=== PATIENT | female | born 1955 | race Caucasian/White ===

== ENCOUNTER 2017-09-19 12:08 | Outpatient (CLI) | payer BC | END 2017-09-19 12:09 | disposition home or self-care (01) | LOC: BICMAMMO 12:08 | PROVIDERS: ATTEND Physician Assistant | DX: Z12.31 Encounter for screening mammogram for malignant neoplasm of breast (principal); Z80.3 Family history of malignant neoplasm of breast | CPT/HCPCS: 77063; 77067 ==

== ENCOUNTER 2018-08-30 09:32 | Outpatient (CLI) | payer BC ==
--- NOTE | 2018-08-30 11:06 | RAD ---
CHEST PA AND LATERAL: HISTORY: Cough for two months. COMPARISON: 04/23/2011 FINDINGS: Heart size is normal. Lungs are clear of acute process. No confluent pneumonia, overt edema, or ple ural effusion. IMPRESSION: No acute intrathoracic disease. POS: C
== END 2018-08-30 09:33 | disposition home or self-care (01) ==
LOC: BICRAD 09:32
PROVIDERS: ATTEND Family Medicine
DX: R07.2 Precordial pain (principal)
CPT/HCPCS: 36415; 71046; 80053; 80061

== ENCOUNTER 2018-10-11 15:50 | Outpatient (CLI) | payer BC ==
--- NOTE | 2018-10-11 16:43 | MMO ---
Bilateral MAMMO Bilat Screen [facility]. CLINICAL HISTORY: Patient is 63 years old and is seen for screening. The patient has the following family history of breast cancer: mother. The patient has no personal history of cancer. VIEWS: The views performed were: bilateral craniocaudal with tomosynthesis and bilateral mediolateral oblique with tomosynthesis. FILMS COMPARED: The present examination has been compared to prior imaging studies performed at [facility] on 09/03/2014, 09/08/2015, 09/09/2016 and 09/19/2017. MAMMOGRAM FINDINGS: There are scattered fibroglandular densities. There are no suspicious masses, suspicious calcifications, or new areas of architectural distortion. IMPRESSION: THERE IS NO MAMMOGRAPHIC EVIDENCE OF MALIGNANCY. A ROUTINE FOLLOW-UP MAMMOGRAM IN 1 YEAR IS RECOMMENDED. THE RESULTS OF THIS EXAM WERE SENT TO THE PATIENT. ACR BI-RADS Category 1 - Negative MAMMOGRAPHY NOTE: 1. A negative mammogram report should not delay a biopsy if a dominant of clinically suspicious mass is present. 2. Approximately 10% to 15% of breast cancers are not detected by mammography. 3. Adenosis and dense breasts may obscure an underlying neoplasm. Reported by: SUDHAKAR LUDWIG MD Electonically Signed: [id number]
== END 2018-10-11 15:51 | disposition home or self-care (01) ==
LOC: BICMAMMO 15:50
PROVIDERS: ATTEND Family Medicine
DX: Z12.31 Encounter for screening mammogram for malignant neoplasm of breast (principal); Z80.3 Family history of malignant neoplasm of breast
CPT/HCPCS: 77063; 77067

== ENCOUNTER 2019-10-19 12:13 | Outpatient (CLI) | payer BC ==
--- NOTE | 2019-10-19 13:00 | MMO ---
Bilateral MAMMO Bilat Screen [facility]. CLINICAL HISTORY: Patient is 64 years old and is seen for screening. The patient has the following family history of breast cancer: mother. The patient has no personal history of cancer. VIEWS: The views performed were: bilateral craniocaudal with tomosynthesis and bilateral mediolateral oblique with tomosynthesis. FILMS COMPARED: The present examination has been compared to prior imaging studies performed at [facility] on 09/08/2015, 09/09/2016, 09/19/2017 and 10/11/2018. This study has been interpreted with the assistance of computer-aided detection. MAMMOGRAM FINDINGS: There are scattered fibroglandular densities. There are no suspicious masses, suspicious calcifications, or new areas of architectural distortion. IMPRESSION: THERE IS NO MAMMOGRAPHIC EVIDENCE OF MALIGNANCY. A ROUTINE FOLLOW-UP MAMMOGRAM IN 1 YEAR IS RECOMMENDED. THE RESULTS OF THIS EXAM WERE SENT TO THE PATIENT. ACR BI-RADS Category 1 - Negative MAMMOGRAPHY NOTE: 1. A negative mammogram report should not delay a biopsy if a dominant of clinically suspicious mass is present. 2. Approximately 10% to 15% of breast cancers are not detected by mammography. 3. Adenosis and dense breasts may obscure an underlying neoplasm. Reported by: SUKUMAR POWERS MD Electonically Signed: [id number]
== END 2019-10-19 12:14 | disposition home or self-care (01) ==
LOC: BICMAMMO 12:13
PROVIDERS: ATTEND Family Medicine
DX: Z12.31 Encounter for screening mammogram for malignant neoplasm of breast (principal); Z80.3 Family history of malignant neoplasm of breast
CPT/HCPCS: 77063; 77067

== ENCOUNTER 2019-11-14 07:39 | Outpatient (CLI) | payer BC, OTHER ==
[2019-11-14 14:04] LABS: Hemoglobin 13.3 g/dL (12.0-16.0); Mean Corpuscular HGB CONC 34.3 g/dL (32.0-36.0); Mean Corpuscular Hemoglobin 31.1 pg (27.0-31.0); Mean Corpuscular Volume 90.5 fL (78.0-98.0); Mean Platelet Volume 7.2 fL (7.4-10.4); Platelet Count 271 thou/uL (130-400); RBC Distribution Width 11.8 % (11.5-14.5); Red Blood Cell (RBC) Count 4.27 mill/uL (4.20-5.40); White Blood Cell (WBC) Count 6.9 thou/uL (4.8-10.8)
[2019-11-15 13:16] LABS: SARS-CoV-2 MS2 Positive; SARS-CoV-2 N Gene Negative; SARS-CoV-2 S Gene Negative; SARS-CoV-2 by NAA Not Detected (NotDetected); SARS-CoV-2 orf1ab Negative
== END 2019-11-14 07:40 | disposition home or self-care (01) ==
LOC: LABBT 07:39
PROVIDERS: ATTEND Obstetrics & Gynecology
DX: Z01.812 Encounter for preprocedural laboratory examination (principal); Z20.828 Contact with and (suspected) exposure to other viral communicable diseases; N81.11 Cystocele, midline; N81.6 Rectocele; N39.3 Stress incontinence (female) (male)
CPT/HCPCS: 85027; 86850; 86900; 86901; 87635; U0003

== ENCOUNTER 2019-11-19 10:05 | Day surgery (SDC) | payer BC ==
[2019-11-15 12:14] VITALS: BMI 30.3
--- NOTE | 2019-11-18 18:57 | HP ---
HISTORY OF PRESENT ILLNESS: Ms. Medel is a 64-year-old white female, previous hysterectomy, who has been having increasing symptoms of pelvic prolapse and an increasing bulge symptoms in the vagina. She denies any stress incontinence issues. She has done Kegel exercises with minimal improvement of her symptoms. She is desiring surgical repair of the prolapse. PAST MEDICAL HISTORY: Hyperlipidemia and reflux. PREVIOUS SURGERIES: As noted, the hysterectomy in the past. MEDICATIONS: 1. Esomeprazole magnesium 40 mg tablet daily. 2. Estrace 0.01% vaginal cream twice a week. 3. Simvastatin. ALLERGIES: NO KNOWN DRUG ALLERGIES. FAMILY HISTORY: Noncontributory. PHYSICAL EXAMINATION: VITAL SIGNS: 5 feet 2 inches, weight 165, BMI 30.2, blood pressure 130/82, pulse 75 and regular, respiratory rate 18, and O2 saturation 95% on room air. HEENT: Within normal limits. CHEST: Clear to auscultation. HEART: Regular rate and rhythm, S1 and S2 heart sounds. No murmurs, rubs, or gallops. ABDOMEN: Soft, nontender, nondistended with no palpable masses. PELVIC: Vulva and vagina had no lesions. Cervix surgically absent. Vagina had no lesions. She did have a grade 3 cystocele, grade 2 rectocele on exam. ASSESSMENT: This is a 64-year-old white female with prior hysterectomy with symptomatic grade 3 cystocele and grade 2 rectocele. PLAN: Plan is to proceed with anterior and posterior repair procedure on 11/19/2019. Risks and benefits of procedure have been discussed in detail. Job ID: [id number]
[2019-11-19] MEDS ORDERED: EPHEDRINE 25 MG/5 ML SYRINGE ONE (10:51)
[2019-11-19] MEDS ORDERED: Lidocaine 1% PF 5 ML VIAL ONE (10:51)
[2019-11-19] MEDS ORDERED: Dexamethasone 20 MG/5 ML VIAL ONE (10:51)
[2019-11-19] MEDS ORDERED: Metoclopramide HCl 10 MG/2 ML VIAL ONE (10:51)
[2019-11-19] MEDS ORDERED: Ondansetron PF 4 MG/2 ML Vial ONE (10:51)
[2019-11-19] MEDS ORDERED: Rocuronium Bromide 10 MG/ML (10ML VIAL) ONE (10:51)
[2019-11-19] MEDS ORDERED: PROPOFOL 200 MG/20 ML VIAL ONE (10:51)
[2019-11-19] MEDS ORDERED: PHENYLEPHRINE-NS 100 MCG/ML 10 ML SYRINGE ONE (10:51)
[2019-11-19] MEDS ORDERED: Fentanyl 100 MCG/2 ML VIAL ONE (12:12)
[2019-11-19] MEDS ORDERED: SUGAMMADEX SODIUM 200 MG/2 ML VIAL ONE (12:13)
[2019-11-19] MEDS ORDERED: Famotidine/PF 20 mg/2ml Vial ONE (12:13)
[2019-11-19] MEDS ORDERED: Lidocaine 1% w/Epinephrine 1:100K 20 ML VIAL ONE (12:35)
[2019-11-19] MEDS ORDERED: Ketorolac Tromethamine 30 MG/ML VIAL IVP PRN (14:11)
[2019-11-19] MEDS ORDERED: Promethazine HCl 25 MG/ML VIAL IM PRN ×2 (14:11→14:14)
[2019-11-19] MEDS ORDERED: Ondansetron HCl/PF 4 MG/2 ML Vial IVP PRN (14:11)
[2019-11-19] MEDS ORDERED: Meperidine HCl/PF 25 MG/ML VIAL SLOW IVP PRN (14:11)
[2019-11-19] MEDS ORDERED: Promethazine HCl 25 MG/ML VIAL SLOW IVP PRN (14:11)
[2019-11-19] MEDS ORDERED: Simethicone Chewable 80 MG TAB PO PRN (14:14)
[2019-11-19] MEDS ORDERED: Morphine 4 MG/ML VIAL SLOW IVP PRN (14:14)
[2019-11-19] MEDS ORDERED: Zolpidem Tartrate 5 MG TAB PO PRN (14:14)
[2019-11-19] MEDS ORDERED: Acetaminophen 325 MG TAB PO PRN (14:14)
[2019-11-19] MEDS ORDERED: traMADol HCl 50 MG TAB PO PRN (14:14)
[2019-11-19] MEDS ORDERED: diphenhydrAMINE 25 MG CAP PO PRN (14:14)
[2019-11-19] MEDS ORDERED: Ondansetron PF 4 MG/2 ML Vial IVP PRN (14:14)
--- NOTE | 2019-11-19 18:11 | OP ---
DATE OF PROCEDURE: 11/19/2019 PREOPERATIVE DIAGNOSES: A 64-year-old white female, prior LAVH, BSO with A and P, 10 years ago with recurrence of grade 3 cystocele and grade 2 rectocele. POSTOPERATIVE DIAGNOSES: A 64-year-old white female, prior LAVH, BSO with A and P, 10 years ago with recurrence of grade 3 cystocele and grade 2 rectocele. PROCEDURE PERFORMED: Anterior and posterior repair. SURGEON: Anel Horton MD ANESTHESIA: General. ESTIMATED BLOOD LOSS: 25 mL. COMPLICATIONS: None. COUNTS: Correct x2. FINDINGS: 1. Clear urine present in Caruso catheter postprocedure. 2. Posterior repair procedure, rectal exam showed no evidence of any inadvertent suture placement through the rectal mucosa. DISPOSITION: Recovery room, stable. DESCRIPTION OF PROCEDURE: The patient previously received informed consent in regard to surgery. She was taken back to the operating room, where she received a general endotracheal anesthetic agent without complications. She was placed in the dorsal lithotomy position with the use of Logan stirrups. She was prepped and draped in usual fashion and Caruso catheter was placed. At this time, exam under anesthesia was carried out with the previously mentioned findings. A weighted speculum was placed in the vagina. The apex of the vaginal cuff line was grasped with two Allis clamps at 3 o'clock and 9 o'clock. The anterior vaginal mucosa was infiltrated with 1% lidocaine with epinephrine for hydrodissection. Then, a vertical midline incision was made in the anterior vaginal mucosa, carried up to about 1.5 cm from the urethral meatus. The edges of the vaginal mucosa were grasped with intervening Allis clamps while I dissected the cystocele both bluntly and sharply away from the vaginal mucosal jimenez. Once the cystocele had been reduced in its entirety, the endopelvic fascia was then replicated in the midline using [id number] sutures of 2-0 Vicryl in an interrupted fashion. Once the endopelvic fascia plication was completed, the excess vaginal mucosa was trimmed and the anterior vaginal mucosa was closed with interrupted [id number] sutures of 2-0 Vicryl incorporating some of the endopelvic fascia to rid the space. We then removed the weighted speculum and the posterior repair was carried out. Two Allis clamps were placed at both the 4 o'clock and 8 o'clock position of the vaginal introitus. An incision in the posterior vaginal mucosa was made with Metzenbaum scissors. It was carried up to the cuff line. The edges of the posterior vaginal mucosa were intervening on Allis clamps. Again, the rectocele was dissected both sharply and bluntly reducing the rectocele defect. The endopelvic fascia was then replicated starting the with the most apex portion, replicated in the midline reducing and repairing the fascial defect with interrupted 2-0 Vicryl sutures. The remainder of the posterior vaginal mucosa was then closed with interrupted [id number] stitches of 2-0 Vicryl suture incorporating some of the space securing hemostasis. Excess vaginal mucosa had been trimmed prior to that. The rectal exam was then performed. There was no inadvertent suture placement within the rectal mucosa noted. A moistened Kerlix was then utilized to pack the vaginal vault for added hemostasis and packing. The patient was awakened from anesthesia and transferred to recovery room in stable condition. Job ID: [id number]
[2019-11-19] MEDS: Ketorolac Tromethamine 30 MG/ML VIAL IVP SCH (18:20)
[2019-11-19] MEDS: traMADol HCl 50 MG TAB PO PRN (20:36)
[2019-11-20] MEDS: Ketorolac Tromethamine 30 MG/ML VIAL IVP SCH ×3 (00:21→11:39)
[2019-11-20] MEDS: Lactated Ringer's 1,000 ML IV SCH ×2 (00:22→05:49)
[2019-11-20 05:36] LABS: Hemoglobin 11.6 g/dL (12.0-16.0); Mean Corpuscular HGB CONC 33.5 g/dL (32.0-36.0); Mean Corpuscular Hemoglobin 30.4 pg (27.0-31.0); Mean Corpuscular Volume 90.8 fL (78.0-98.0); Platelet Count 236 thou/uL (130-400); RBC Distribution Width 11.7 % (11.5-14.5); Red Blood Cell (RBC) Count 3.81 mill/uL (4.20-5.40); White Blood Cell (WBC) Count 10.7 thou/uL (4.8-10.8)
[2019-11-20] MEDS: traMADol HCl 50 MG TAB PO PRN (05:48)
[2019-11-20 11:57] VITALS: BP 105/53; TEMP 97.7
[2019-11-24] MEDS ORDERED: Ibuprofen 800 MG TAB PO SCH (21:00)
== END 2019-11-20 13:10 | disposition home or self-care (01) ==
LOC: SDC 10:05 → 3SW 14:14 → SDC 11-20 13:10
PROVIDERS: ATTEND Obstetrics & Gynecology
PROC: 0JQC0ZZ Repair Pelvic Region Subcutaneous Tissue and Fascia, Open Approach (ICD-10-PCS; principal; 2019-11-20)
DX: N81.10 Cystocele, unspecified (principal); N81.6 Rectocele; E78.5 Hyperlipidemia, unspecified; K21.9 Gastro-esophageal reflux disease without esophagitis; Z79.899 Other long term (current) drug therapy
CPT/HCPCS: 36415; 85027; 93005; 93010; J0690; J1100; J1885; J2405; J2704; J2765; J3010; S0028

== ENCOUNTER 2020-11-18 17:30 | Outpatient (CLI) | payer MEDICARE, BC | END 2020-11-18 17:31 | disposition home or self-care (01) | LOC: SLEEPLAB 17:30 | PROVIDERS: ATTEND Family Medicine | DX: G47.33 Obstructive sleep apnea (adult) (pediatric) (principal); R06.83 Snoring; F32.9 Major depressive disorder, single episode, unspecified | CPT/HCPCS: 95806 ==

== ENCOUNTER 2021-02-26 19:00 | Outpatient (CLI) | payer MEDICARE, BC | END 2021-02-26 19:01 | disposition home or self-care (01) | LOC: SLEEPLAB 19:00 | PROVIDERS: ATTEND Family Medicine | DX: G47.33 Obstructive sleep apnea (adult) (pediatric) (principal); R06.83 Snoring; F32.9 Major depressive disorder, single episode, unspecified; G47.10 Hypersomnia, unspecified; E66.9 Obesity, unspecified; Z68.32 Body mass index [BMI] 32.0-32.9, adult | CPT/HCPCS: 95811 ==

== ENCOUNTER 2022-04-20 13:05 | Outpatient (CLI) | payer MEDICARE, BC ==
[~2022-04-20 13:05] MED LIST: Iopamidol 370 76% 100 ML VIAL ONE
== END 2022-04-20 13:06 | disposition home or self-care (01) ==
LOC: BICCT 13:05
PROVIDERS: ATTEND Family Medicine
DX: I72.9 Aneurysm of unspecified site (principal)
CPT/HCPCS: 70496; 82565; Q9967

== ENCOUNTER 2023-02-24 14:17 | Outpatient (CLI) | payer MEDICARE, BC | END 2023-02-24 14:18 | disposition home or self-care (01) | LOC: BICMAMMO 14:17 | PROVIDERS: ATTEND Family Medicine | DX: Z12.31 Encounter for screening mammogram for malignant neoplasm of breast (principal); M85.89 Other specified disorders of bone density and structure, multiple sites; Z80.3 Family history of malignant neoplasm of breast | CPT/HCPCS: 77063; 77067; 77080 ==

== ENCOUNTER 2025-01-28 16:21 | Outpatient (CLI) | payer MEDICARE | END 2025-01-28 16:22 | disposition home or self-care (01) | LOC: SCSRAD 16:21 | PROVIDERS: ATTEND Family Medicine | DX: R06.02 Shortness of breath (principal) | CPT/HCPCS: 71046 ==